=== PATIENT | female | born 1970 | race Caucasian/White ===

== ENCOUNTER 2020-10-02 09:25 | Observation (INO) ==
[2020-10-02] MEDS ORDERED: ONDANSETRON INJ 2 MG/ML 2 ML VIAL IV STA (11:08)
[2020-10-02] MEDS ORDERED: HYDROmorphone INJ 0.5 MG/0.5 ML SYR IV STA ×2 (11:08→13:03)
--- NOTE | 2020-10-02 11:16 | XRay Report ---
XR ribs RT min 2V w CXR1V CLINICAL HISTORY: right sided rib pain r/o fracture COMPARISON: None FINDINGS: There is no pneumothorax or pleural effusion. Lung volumes are mildly diminished. Minimal left basilar opacity favors atelectasis. Cardiac size is normal. No evidence for pulmonary edema. Not e is made of nondisplaced fractures of the anterolateral aspects of the right fourth, fifth and sixth ribs as well as the anterior aspects of the right fourth and fifth ribs. There is callus formation. No acute fractures are identified. IMPRESSION: 1. No pneumothorax. 2. Fractures of the right fourth, fifth and sixth ribs. Fourth and fifth ribs fractured in 2 location s. Apparent callus formation suggestive of subacute to chronic fractures. No acute fractures identifi ed. ACT 112: Negative or not required by law. Electronically signed by: Edmond Martinez M.D. 10/02/2020 11:14 AM
[2020-10-02 11:40] LABS: Basophils # (auto) 0.01 K/uL (0-0.2); Basophils % (auto) 0.1 %; Eosinophils # (auto) 0.01 K/uL (0-0.5); Eosinophils % (auto) 0.1 %; Hematocrit (blood only) 46.1 % (37-47); Hemoglobin 16.4 g/dL (12.0-16.0); Immature Granulocytes # (auto) 0.03 K/uL (0.00-0.02); Immature Granulocytes % (auto) 0.3 %; Lymphocytes # (auto) 1.74 K/uL (1.2-3.4); Lymphocytes % (auto) 14.6 %; Mean Corpuscular Hemoglobin 35.9 pg (25-34); Mean Corpuscular Hgb Conc 35.6 g/dL (32-36); Mean Corpuscular Volume 100.9 fL (80-100); Mean Platelet Volume 11.8 fL (7.4-10.4); Monocytes # (auto) 0.93 K/uL (0.11-0.59); Monocytes % (auto) 7.8 %; Neutrophils # (auto) 9.23 K/uL (1.4-6.5); Neutrophils % (auto) 77.1 %; Platelet Count 215 K/uL (130-400); RDW Coefficient of Variation 13.5 % (11.5-14.5); RDW Standard Deviation 50.1 fL (36.4-46.3); Red Blood Count 4.57 M/uL (4.2-5.4); White Blood Count 11.95 K/uL (4.8-10.8)
--- NOTE | 2020-10-02 11:47 | Emergency Department Note ---
History of Present Illness General Chief complaint: Rib Injury/Pain Stated complaint: SEVERE RIB PAIN Time Seen by Provider: 10/02/20 11:02 Source: patient History of Present Illness Provider complaint: Right-sided rib pain Onset (ago): hour(s) Location: chest and right Radiation: back Severity: severe Pain Consistency: + constant Maximum Pain Intensity: 8 Quality: + sharp Exacerbated By: + movement Associated symptoms: + shortness of breath; no cough, no fever/chills, no headaches, no nausea/vomiting and no weakness This is a 49-year-old female who presents with right-sided rib pain starting at 8 PM last night. The patient states that she was drinking alcohol and she did a cartwheel falling onto her right side. She states the pain is sharp. She rates it an 8 out of 10 in severity. It is worse with movement or deep breaths. It is associated with some shortness of breath. She also thinks that she hit her head and she complains of right-sided neck pain. She denies any headache. She denies LOC. She denies any abdominal pain. She does have chronic hip pain but her hips are not bothering her at this time. She denies any recent illness, fever, cough or cold symptoms, vomiting or diarrhea. Home Medications Medication Instructions Recorded Confirmed Type buspirone 5 - 15 mg PO BID 10/02/20 10/02/20 History lisinopril 40 mg PO DAILY 10/02/20 10/02/20 History metoprolol succinate 100 mg PO QAM 10/02/20 10/02/20 History trazodone 50 mg PO DAILY 10/02/20 10/02/20 History venlafaxine 300 mg PO DAILY 10/02/20 10/02/20 History Allergies Allergy/AdvReac Type Severity Reaction Status Date / Time celecoxib [From Celebrex] Allergy Severe BLURRED Unverified 10/02/20 14:32 VISION, DIZZINESS Sulfa (Sulfonamide Allergy Severe RASH, SKIN Unverified 10/02/20 14:32 Antibiotics) ITCHING Past Med/Surg History Medical History Depression Hypertension Lyme disease Family History (Updated 10/02/20 @ 15:43 by Jeramy Nicole MD) Father Hypertension Social History Smoking Status: Current every day smoker Tobacco Type: Cigarettes Feels Safe at Home: Yes Review of Systems See HPI for pertinent positives & negatives. and A total of 10 systems reviewed and were otherwise negative Physical Exam Vital Signs Vital Signs - 24 hr 10/02/20 09:41 10/02/20 11:53 10/02/20 11:54 Temperature 36.6 C Temperature Source Temporal Artery Scan Pulse Rate 66 87 Pulse Rate [Finger] 70 Pulse Rate from SpO2 Sensor 87 Pulse Rhythm [Finger] Regular Respiratory Rate 18 22 18 Blood Pressure 124/85 131/89 Blood Pressure [Left Arm] 131/89 Blood Pressure Mean 98 103 Blood Pressure Mean [Left Arm] 103 Pulse Oximetry 95 97 96 Oxygen Delivery Method Room Air Sepsis Recent Fever Within 48 Hours No Sepsis New/Unexplained Change in Mental Status No Sepsis Action Taken by Nursing No Action Required 10/02/20 11:58 10/02/20 12:00 10/02/20 12:10 Temperature Temperature Source Pulse Rate 85 83 75 Pulse Rate [Finger] Pulse Rate from SpO2 Sensor 85 83 76 Pulse Rhythm [Finger] Respiratory Rate 17 17 18 Blood Pressure Blood Pressure [Left Arm] Blood Pressure Mean Blood Pressure Mean [Left Arm] Pulse Oximetry 94 93 93 Oxygen Delivery Method Sepsis Recent Fever Within 48 Hours Sepsis New/Unexplained Change in Mental Status Sepsis Action Taken by Nursing 10/02/20 12:20 10/02/20 12:30 10/02/20 12:40 Temperature Temperature Source Pulse Rate 92 H 82 76 Pulse Rate [Finger] Pulse Rate from SpO2 Sensor 93 H 81 74 Pulse Rhythm [Finger] Respiratory Rate 13 25 H 21 Blood Pressure Blood Pressure [Left Arm] Blood Pressure Mean Blood Pressure Mean [Left Arm] Pulse Oximetry 99 96 96 Oxygen Delivery Method Sepsis Recent Fever Within 48 Hours Sepsis New/Unexplained Change in Mental Status Sepsis Action Taken by Nursing 10/02/20 12:58 10/02/20 13:00 10/02/20 13:10 Temperature Temperature Source Pulse Rate 78 83 80 Pulse Rate [Finger] Pulse Rate from SpO2 Sensor 78 77 Pulse Rhythm [Finger] Respiratory Rate 21 22 23 Blood Pressure Blood Pressure [Left Arm] Blood Pressure Mean Blood Pressure Mean [Left Arm] Pulse Oximetry 93 97 Oxygen Delivery Method Sepsis Recent Fever Within 48 Hours Sepsis New/Unexplained Change in Mental Status Sepsis Action Taken by Nursing 10/02/20 13:20 10/02/20 13:30 10/02/20 13:40 Temperature Temperature Source Pulse Rate 86 96 H 90 Pulse Rate [Finger] Pulse Rate from SpO2 Sensor 83 94 H 94 H Pulse Rhythm [Finger] Respiratory Rate 22 28 H 22 Blood Pressure Blood Pressure [Left Arm] Blood Pressure Mean Blood Pressure Mean [Left Arm] Pulse Oximetry 92 97 99 Oxygen Delivery Method Sepsis Recent Fever Within 48 Hours Sepsis New/Unexplained Change in Mental Status Sepsis Action Taken by Nursing 10/02/20 13:50 10/02/20 14:00 10/02/20 14:10 Temperature Temperature Source Pulse Rate 94 H 79 74 Pulse Rate [Finger] Pulse Rate from SpO2 Sensor 91 H 79 74 Pulse Rhythm [Finger] Respiratory Rate 21 16 13 Blood Pressure Blood Pressure [Left Arm] Blood Pressure Mean Blood Pressure Mean [Left Arm] Pulse Oximetry 94 95 94 Oxygen Delivery Method Sepsis Recent Fever Within 48 Hours Sepsis New/Unexplained Change in Mental Status Sepsis Action Taken by Nursing 10/02/20 14:20 10/02/20 14:24 10/02/20 14:25 Temperature Temperature Source Pulse Rate 87 83 87 Pulse Rate [Finger] Pulse Rate from SpO2 Sensor 83 84 86 Pulse Rhythm [Finger] Respiratory Rate 21 16 28 H Blood Pressure 143/87 H Blood Pressure [Left Arm] Blood Pressure Mean 105 Blood Pressure Mean [Left Arm] Pulse Oximetry 96 97 96 Oxygen Delivery Method Sepsis Recent Fever Within 48 Hours Sepsis New/Unexplained Change in Mental Status Sepsis Action Taken by Nursing 10/02/20 14:30 10/02/20 14:40 10/02/20 14:45 Temperature Temperature Source Pulse Rate 73 68 71 Pulse Rate [Finger] Pulse Rate from SpO2 Sensor 72 72 76 Pulse Rhythm [Finger] Respiratory Rate 22 24 19 Blood Pressure 135/84 116/69 Blood Pressure [Left Arm] Blood Pressure Mean 101 84 Blood Pressure Mean [Left Arm] Pulse Oximetry 94 92 98 Oxygen Delivery Method Sepsis Recent Fever Within 48 Hours Sepsis New/Unexplained Change in Mental Status Sepsis Action Taken by Nursing 10/02/20 14:50 10/02/20 15:00 10/02/20 15:10 Temperature Temperature Source Pulse Rate 79 88 83 Pulse Rate [Finger] Pulse Rate from SpO2 Sensor 76 92 H 83 Pulse Rhythm [Finger] Respiratory Rate 17 16 21 Blood Pressure Blood Pressure [Left Arm] Blood Pressure Mean Blood Pressure Mean [Left Arm] Pulse Oximetry 96 98 94 Oxygen Delivery Method Sepsis Recent Fever Within 48 Hours Sepsis New/Unexplained Change in Mental Status Sepsis Action Taken by Nursing 10/02/20 15:15 10/02/20 15:20 10/02/20 15:30 Temperature Temperature Source Pulse Rate 79 96 H 91 H Pulse Rate [Finger] Pulse Rate from SpO2 Sensor 80 97 H 86 Pulse Rhythm [Finger] Respiratory Rate 14 22 22 Blood Pressure 135/106 H Blood Pressure [Left Arm] Blood Pressure Mean 115 Blood Pressure Mean [Left Arm] Pulse Oximetry 97 97 94 Oxygen Delivery Method Sepsis Recent Fever Within 48 Hours Sepsis New/Unexplained Change in Mental Status Sepsis Action Taken by Nursing 10/02/20 15:40 10/02/20 15:50 10/02/20 16:00 Temperature Temperature Source Pulse Rate 70 74 67 Pulse Rate [Finger] Pulse Rate from SpO2 Sensor 72 76 68 Pulse Rhythm [Finger] Respiratory Rate 12 14 24 Blood Pressure Blood Pressure [Left Arm] Blood Pressure Mean Blood Pressure Mean [Left Arm] Pulse Oximetry 94 95 95 Oxygen Delivery Method Sepsis Recent Fever Within 48 Hours Sepsis New/Unexplained Change in Mental Status Sepsis Action Taken by Nursing Constitutional: Vital signs reviewed. Eyes: Pupils are equal round reactive to light. Conjunctiva are noninjected. ENT: Pharynx is clear without erythema or exudate. Mucous membranes are moist. No midline tenderness to the cervical spine. Respiratory: Clear to auscultation bilaterally. Breath sounds are equal bilaterally. Cardiovascular: Regular rate and rhythm. No rubs or gallops. GI: Soft, nondistended and nontender. Bowel sounds are present. Musculoskeletal: No peripheral edema. No hip or lower extremity tenderness. She has tenderness diffusely over the right chest with light palpation. Integumentary: No cyanosis. or jaundice. Neurologic: The patient is awake and alert. Cranial nerves II-XII are intact. Motor is 5 out of 5 all extremities. Sensation is intact to light touch all extremities. Normal speech. No pronator drift. Psychiatric: Anxious. Course Administered Medications Discontinued Medications Hydromorphone HCl (Hydromorphone Inj 0.5 Mg/0.5 Ml Syr) 0.5 mg IV NOW STA Stop: 10/02/20 11:09 Last Admin: 10/02/20 11:53 Dose: 0.5 mg Documented by: [id number] Hydromorphone HCl (Hydromorphone Inj 0.5 Mg/0.5 Ml Syr) 0.5 mg IV NOW STA Stop: 10/02/20 13:04 Last Admin: 10/02/20 13:09 Dose: 0.5 mg Documented by: [id number] Ioversol (Optiray 300 100ml) 90 ml IV ONCE ONE Stop: 10/02/20 12:50 Last Admin: 10/02/20 15:44 Dose: Not Given Documented by: [id number] Ondansetron HCl (Ondansetron Inj 2 Mg/Ml 2 Ml Vial) 4 mg IV NOW STA Stop: 10/02/20 11:09 Last Admin: 10/02/20 11:53 Dose: 4 mg Documented by: [id number] Medical Decision Making Differential Diagnosis Rib fracture, contusion, pneumothorax, hemothorax, intracranial hemorrhage, cervical fracture, visceral injury Medical Records Attestation: I reviewed the patient's medical records. I did perform a limited focused review of portions of the patient's old chart on the electronic medical record. The patient has had no recent pertinent visits to this hospital. Home Medications Current Medication List: was personally reviewed by me Laboratory Data Attestation: I reviewed the patient's lab results. Result diagrams: 10/02/20 11:27 10/02/20 11:27 Lab Results 10/02/20 10/02/20 10/02/20 Range/Units 11:27 11:27 11:27 WBC 11.95 H (4.8-10.8) K/uL RBC 4.57 (4.2-5.4) M/uL Hgb 16.4 H (12.0-16.0) g/dL Hct 46.1 (37-47) % MCV 100.9 H (80-100) fL MCH 35.9 H (25-34) pg MCHC 35.6 (32-36) g/dL RDW Std Deviation 50.1 H (36.4-46.3) fL RDW Coeff of Guero 13.5 (11.5-14.5) % Plt Count 215 (130-400) K/uL MPV 11.8 H (7.4-10.4) fL Immature Gran % (Auto) 0.3 % Neut % (Auto) 77.1 % Lymph % (Auto) 14.6 % [place] % (Auto) 7.8 % Eos % (Auto) 0.1 % Baso % (Auto) 0.1 % Neut # (Auto) 9.23 H (1.4-6.5) K/uL Lymph # (Auto) 1.74 (1.2-3.4) K/uL [place] # (Auto) 0.93 H (0.11-0.59) K/uL Eos # (Auto) 0.01 (0-0.5) K/uL Baso # (Auto) 0.01 (0-0.2) K/uL Immature Gran # (Auto) 0.03 H (0.00-0.02) K/uL PT 10.3 (9.0-12.0) Seconds INR 1.0 (0.9-1.1) APTT 33.2 H (21.0-31.0) Seconds PTT Ratio 1.3 Sodium 136 (136-145) mmol/L Potassium 3.8 (3.5-5.1) mmol/L Chloride 105 (98-107) mmol/L Carbon Dioxide 22 (21-32) mmol/L Anion Gap 9.0 (3-11) BUN 8 (7-18) mg/dl Creatinine 0.90 (0.6-1.2) mg/dl Est Cr Clr Drug Dosing 69.4 ml/min Est GFR ( Amer) 88.3 Est GFR (Non-Af Amer) 76.1 BUN/Creatinine Ratio 8.9 L (10-20) Glucose 106 H (70-99) mg/dl Calcium 8.9 (8.5-10.1) mg/dl Total Bilirubin 1.2 H (0.2-1) mg/dl AST 246 H (15-37) U/L ALT 144 H (12-78) U/L Alkaline Phosphatase 118 H (45-117) U/L Total Protein 7.8 (6.4-8.2) gm/dl Albumin 3.9 (3.4-5.0) gm/dl Globulin 3.9 (2.5-4.0) gm/dl Albumin/Globulin Ratio 1.0 (0.9-2) Lipase (73-393) U/L Urine Color Urine Appearance (Clear) Urine pH (4.5-7.5) Ur Specific [place] (1.000-1.030) Urine Protein (Negative) Urine Glucose (UA) (Negative) Urine Ketones (Negative) Urine Blood (Negative) Urine Nitrite (Negative) Urine Bilirubin (Negative) Urine Urobilinogen (Negative) Ur Leukocyte Esterase (Negative) Urine WBC (Auto) (0-5) /hpf Urine RBC (Auto) (0-4) /hpf U Hyaline Cast (Auto) (0-5) /lpf U Epithel Cells (Auto) (0-5) /lpf Urine Bacteria (Auto) (Negative) Ur Renal Epithelial Cell COVID-19 Eval Order SARS-CoV-2 (PCR) (Negative) Influenza Type A (PCR) (Neg) Influenza Type B (PCR) (Neg) RSV (RT-PCR) (Neg) 10/02/20 10/02/20 10/02/20 Range/Units 11:27 12:25 12:25 WBC (4.8-10.8) K/uL RBC (4.2-5.4) M/uL Hgb (12.0-16.0) g/dL Hct (37-47) % MCV (80-100) fL MCH (25-34) pg MCHC (32-36) g/dL RDW Std Deviation (36.4-46.3) fL RDW Coeff of Guero (11.5-14.5) % Plt Count (130-400) K/uL MPV (7.4-10.4) fL Immature Gran % (Auto) % Neut % (Auto) % Lymph % (Auto) % [place] % (Auto) % Eos % (Auto) % Baso % (Auto) % Neut # (Auto) (1.4-6.5) K/uL Lymph # (Auto) (1.2-3.4) K/uL [place] # (Auto) (0.11-0.59) K/uL Eos # (Auto) (0-0.5) K/uL Baso # (Auto) (0-0.2) K/uL Immature Gran # (Auto) (0.00-0.02) K/uL PT (9.0-12.0) Seconds INR (0.9-1.1) APTT (21.0-31.0) Seconds PTT Ratio Sodium (136-145) mmol/L Potassium (3.5-5.1) mmol/L Chloride (98-107) mmol/L Carbon Dioxide (21-32) mmol/L Anion Gap (3-11) BUN (7-18) mg/dl Creatinine (0.6-1.2) mg/dl Est Cr Clr Drug Dosing ml/min Est GFR ( Amer) Est GFR (Non-Af Amer) BUN/Creatinine Ratio (10-20) Glucose (70-99) mg/dl Calcium (8.5-10.1) mg/dl Total Bilirubin (0.2-1) mg/dl AST (15-37) U/L ALT (12-78) U/L Alkaline Phosphatase (45-117) U/L Total Protein (6.4-8.2) gm/dl Albumin (3.4-5.0) gm/dl Globulin (2.5-4.0) gm/dl Albumin/Globulin Ratio (0.9-2) Lipase 125 (73-393) U/L Urine Color Urine Appearance (Clear) Urine pH (4.5-7.5) Ur Specific [place] (1.000-1.030) Urine Protein (Negative) Urine Glucose (UA) (Negative) Urine Ketones (Negative) Urine Blood (Negative) Urine Nitrite (Negative) Urine Bilirubin (Negative) Urine Urobilinogen (Negative) Ur Leukocyte Esterase (Negative) Urine WBC (Auto) (0-5) /hpf Urine RBC (Auto) (0-4) /hpf U Hyaline Cast (Auto) (0-5) /lpf U Epithel Cells (Auto) (0-5) /lpf Urine Bacteria (Auto) (Negative) Ur Renal Epithelial Cell COVID-19 Eval Order CovFluRsv at [facility] SARS-CoV-2 (PCR) NEGATIVE (Negative) Influenza Type A (PCR) Negative (Neg) Influenza Type B (PCR) Negative (Neg) RSV (RT-PCR) Negative (Neg) 10/02/20 Range/Units 14:25 WBC (4.8-10.8) K/uL RBC (4.2-5.4) M/uL Hgb (12.0-16.0) g/dL Hct (37-47) % MCV (80-100) fL MCH (25-34) pg MCHC (32-36) g/dL RDW Std Deviation (36.4-46.3) fL RDW Coeff of Guero (11.5-14.5) % Plt Count (130-400) K/uL MPV (7.4-10.4) fL Immature Gran % (Auto) % Neut % (Auto) % Lymph % (Auto) % [place] % (Auto) % Eos % (Auto) % Baso % (Auto) % Neut # (Auto) (1.4-6.5) K/uL Lymph # (Auto) (1.2-3.4) K/uL [place] # (Auto) (0.11-0.59) K/uL Eos # (Auto) (0-0.5) K/uL Baso # (Auto) (0-0.2) K/uL Immature Gran # (Auto) (0.00-0.02) K/uL PT (9.0-12.0) Seconds INR (0.9-1.1) APTT (21.0-31.0) Seconds PTT Ratio Sodium (136-145) mmol/L Potassium (3.5-5.1) mmol/L Chloride (98-107) mmol/L Carbon Dioxide (21-32) mmol/L Anion Gap (3-11) BUN (7-18) mg/dl Creatinine (0.6-1.2) mg/dl Est Cr Clr Drug Dosing ml/min Est GFR ( Amer) Est GFR (Non-Af Amer) BUN/Creatinine Ratio (10-20) Glucose (70-99) mg/dl Calcium (8.5-10.1) mg/dl Total Bilirubin (0.2-1) mg/dl AST (15-37) U/L ALT (12-78) U/L Alkaline Phosphatase (45-117) U/L Total Protein (6.4-8.2) gm/dl Albumin (3.4-5.0) gm/dl Globulin (2.5-4.0) gm/dl Albumin/Globulin Ratio (0.9-2) Lipase (73-393) U/L Urine Color Yellow Urine Appearance Clear (Clear) Urine pH 6.0 (4.5-7.5) Ur Specific [place] > 1.045 H (1.000-1.030) Urine Protein Trace H (Negative) Urine Glucose (UA) Negative (Negative) Urine Ketones Negative (Negative) Urine Blood Negative (Negative) Urine Nitrite Negative (Negative) Urine Bilirubin Negative (Negative) Urine Urobilinogen Negative (Negative) Ur Leukocyte Esterase Trace H (Negative) Urine WBC (Auto) 5-10 H (0-5) /hpf Urine RBC (Auto) 0-4 (0-4) /hpf U Hyaline Cast (Auto) 1-5 (0-5) /lpf U Epithel Cells (Auto) >30 H (0-5) /lpf Urine Bacteria (Auto) Negative (Negative) Ur Renal Epithelial Cell Not Reportable COVID-19 Eval Order SARS-CoV-2 (PCR) (Negative) Influenza Type A (PCR) (Neg) Influenza Type B (PCR) (Neg) RSV (RT-PCR) (Neg) Imaging Data Radiologist's Impression: Ribs w/Chest X-Ray 10/02/20 09:46 XR ribs RT min 2V w [id number] CLINICAL HISTORY: right sided rib pain r/o fracture COMPARISON: None FINDINGS: There is no pneumothorax or pleural effusion. Lung volumes are mildly diminished. Minimal left basilar opacity favors atelectasis. Cardiac size is normal. No evidence for pulmonary edema. Note is made of nondisplaced fractures of the anterolateral aspects of the right fourth, fifth and sixth ribs as well as the anterior aspects of the right fourth and fifth ribs. There is callus formation. No acute fractures are identified. IMPRESSION: 1. No pneumothorax. 2. Fractures of the right fourth, fifth and sixth ribs. Fourth and fifth ribs fractured in 2 locations. Apparent callus formation suggestive of subacute to chronic fractures. No acute fractures identified. ACT 112: Negative or not required by law. Electronically signed by: Edmond Martinez M.D. 10/02/2020 11:[address] 10/02/20 11:08 CT OF THE CERVICAL SPINE CLINICAL HISTORY: Neck pain status post trauma COMPARISON STUDY: No previous studies for comparison. CT DOSE: 987.43 mGy.cm TECHNIQUE: CT scan of the cervical spine was performed from the skull base to the thoracic inlet. Images are reviewed in the axial, sagittal, and coronal planes. IV contrast was not administered for this examination. A dose lowering technique was utilized adhering to the principles of ALARA. FINDINGS: The visualized portions of the lung apices reveal no evidence of pneumothorax. There is a 2 mm right apical pulmonary nodule. No further follow-up is indicated an average risk patient. The prevertebral soft tissues are normal. No fractures or subluxations are visualized. There is no CT evidence of spinal or foraminal stenosis. There are small right paratracheal gas collections, likely secondary to tracheal diverticula. IMPRESSION: No evidence of acute fracture or traumatic subluxation. ACT 112: Negative or not required by law. Electronically signed by: Alvin Villela M.D. 10/02/2020 11:[address] 10/02/20 11:08 CT head/brain wo con CLINICAL HISTORY: 49 years-old Female with fall eval for bleed. Acute head injury status post fall TECHNIQUE: Multiple axial CT images of the head were obtained without contrast. A dose lowering technique was utilized adhering to the principles of ALARA. COMPARISON: CT cervical spine of same day FINDINGS: No acute intracranial hemorrhage, midline shift, intracranial mass, hydrocephalus, territorial ischemia or abnormal extra-axial collection. The calvarium is intact. The paranasal sinuses, mastoid air cells, and middle ear cavities are clear. IMPRESSION: No acute intracranial abnormality or calvarial fracture. ACT 112: Negative or not required by law. The above report was generated using voice recognition software. It may contain grammatical, syntax or spelling errors. Electronically signed by: Richard Olson M.D. 10/02/2020 11:49 AM Abdomen/Pelvis CT 10/02/20 12:[address] WITH CONTRAST; CT ABDOMEN AND PELVIS WITH IV CONTRAST ONLY CT DOSE: 1324.81 mGy.cm HISTORY: Acute chest and abdominal trauma trauma eval for pulmonary contusion/ptx TECHNIQUE: Multiaxial CT images of the chest, abdomen and pelvis were performed following the IV administration of 90 cc of Optiray. A dose lowering technique was utilized adhering to the principles of ALARA. COMPARISON: Chest and rib radiographs of same day FINDINGS: CT CHEST: Unremarkable thyroid. No adenopathy or mediastinal hematoma. The heart is upper limits of normal in size. No pericardial effusion or acute thoracic aortic injury. Unremarkable pulmonary artery. Mild dependent subsegmental bibasilar atelectasis. No pneumothorax, pleural effusion, overt pulmonary edema or airspace consolidation. Minimal subpleural bleb formation of the lung apices. 2 mm solid nodule of the right lung apex favors benign etiology. Central airways are patent. Small upper thoracic tracheocele. Unremarkable soft tissues. No acute rib or vertebral body fracture identified. Healed chronic appearing fractures of the anterolateral right fourth through sixth ribs. Additionally, there are healing subacute appearing fractures without significant displacement involving the anterior right second, fourth and fifth ribs. CT ABDOMEN/PELVIS: No pneumatosis or pneumoperitoneum. The spleen, pancreas, gallbladder and adrenal glands are unremarkable. Suggested hepatic steatosis. No acute liver injury. Patency of the hepatic and portal veins. Symmetric enhancement of the kidneys. No acute renal injury. There are several nonobstructing calculi of the left kidney measuring up to 11 mm. No definite right nephrolithiasis or ureteral calculi. Unremarkable urinary bladder. Hysterectomy. No adnexal mass lesion. Calcified plaque the abdominal aorta without aneurysm. No adenopathy. No bowel obstruction or bowel wall thickening. Colonic diverticulosis. Air-fille d noninflamed appendix measures the upper limits of normal in diameter. No abdominal free fluid. Tiny fat filled umbilical ventral abdominal wall hernia, diastases 1.5 cm. No acute fracture identified. IMPRESSION: 1. Subacute and chronic right-sided rib fractures as above. No acute rib fracture or pneumothorax. 2. No acute intra-abdominal or intrapelvic abnormality. 3. Nonobstructing left nephrolithiasis. 4. Additional findings as above. ACT 112: Negative or not required by law. Electronically signed by: Richard Olson M.D. 10/02/2020 1:[address] 10/02/20 12:[address] WITH CONTRAST; CT ABDOMEN AND PELVIS WITH IV CONTRAST ONLY CT DOSE: 1324.81 mGy.cm HISTORY: Acute chest and abdominal trauma trauma eval for pulmonary contusion/ptx TECHNIQUE: Multiaxial CT images of the chest, abdomen and pelvis were performed following the IV administration of 90 cc of Optiray. A dose lowering technique was utilized adhering to the principles of ALARA. COMPARISON: Chest and rib radiographs of same day FINDINGS: CT CHEST: Unremarkable thyroid. No adenopathy or mediastinal hematoma. The heart is upper limits of normal in size. No pericardial effusion or acute thoracic aortic injury. Unremarkable pulmonary artery. Mild dependent subsegmental bibasilar atelectasis. No pneumothorax, pleural effusion, overt pulmonary edema or airspace consolidation. Minimal subpleural bleb formation of the lung apices. 2 mm solid nodule of the right lung apex favors benign etiology. Central airways are patent. Small upper thoracic tracheocele. Unremarkable soft tissues. No acute rib or vertebral body fracture identified. Healed chronic appearing fractures of the anterolateral right fourth through sixth ribs. Additionally, there are healing subacute appearing fractures without significant displacement involving the anterior right second, fourth and fifth ribs. CT ABDOMEN/PELVIS: No pneumatosis or pneumoperitoneum. The spleen, pancreas, gallbladder and adrenal glands are unremarkable. Suggested hepatic steatosis. No acute liver injury. Patency of the hepatic and portal veins. Symmetric enhancement of the kidneys. No acute renal injury. There are several nonobstructing calculi of the left kidney measuring up to 11 mm. No definite right nephrolithiasis or ureteral calculi. Unremarkable urinary bladder. Hysterectomy. No adnexal mass lesion. Calcified plaque the abdominal aorta without aneurysm. No adenopathy. No bowel obstruction or bowel wall thickening. Colonic diverticulosis. Air- filled noninflamed appendix measures the upper limits of normal in diameter. No abdominal free fluid. Tiny fat filled umbilical ventral abdominal wall hernia, diastases 1.5 cm. No acute fracture identified. IMPRESSION: 1. Subacute and chronic right-sided rib fractures as above. No acute rib fracture or pneumothorax. 2. No acute intra-abdominal or intrapelvic abnormality. 3. Nonobstructing left nephrolithiasis. 4. Additional findings as above. ACT 112: Negative or not required by law. Electronically signed by: Richard Olson M.D. 10/02/2020 1:11 PM Head Trauma GCS Score: 15 MDM Narrative I did evaluate the patient as noted above. She is presenting with severe rib pain after falling at 8 PM last night while intoxicated. She denies any abdominal pain and has no tenderness there. She does admit to hitting her head. She was placed in a rigid cervical collar. IV access was established. I did treat her with IV Dilaudid and Zofran. I did place an order for continuous cardiac monitoring. The monitor showed normal sinus rhythm at a rate of 67 bpm. I did order and personally reviewed the images of the patient's chest and rib x-rays as described above. She does have 3 rib fractures which contain 2 ribs that are broken in 2 places. I did order a urine analysis. She has no evidence of blood or infection. I did order and review the patient's blood work as noted in the electronic medical record. Her white count is slightly elevated 11.9. Electrolytes are unremarkable. AST and ALT are elevated. After discussion with the patient, I did order a CT of the head, cervical spine, chest, abdomen and pelvis. I did review the images myself as well as the radiology report as described above. There is no evidence of pneumothorax, intracranial abnormality, cervical fracture or visceral injury. I did discuss the case with the trauma surgeon on-call at [facility],, Dr. Roberts. She stated that the patient with likely not get rib fixation as that is very rare for treatment of these types of fractures but she would be happy to take her in transfer. I did talk to the patient who stated that she was fine staying in this hospital if they were going to do anything necessarily at [facility]. The patient was given additional Dilaudid for pain control. She states her LFTs have been elevated in the past due to alcohol abuse. She does states she drinks on a daily basis. She does not feel she is withdrawing at this time. I did discuss the case with the hospitalist and case resolution specialist. Her Covid screening test was negative. Impression & Plan Multiple fractures of ribs, Acute head injury, Acute neck pain, Abnormal LFTs, Alcohol dependence Discharge Plan Visit Data Chief Complaint: Rib Injury/Pain Stated Complaint: SEVERE RIB PAIN ED Provider: David Dowell Patient Disposition: Being Evaluated by Hospitalist Prescriptions Prescriptions: No Action buspirone 5 mg tablet 5 - 15 mg PO BID RF: 0 trazodone 50 mg tablet 50 mg PO DAILY RF: 0 metoprolol succinate 50 mg tablet extended release 24 hr 100 mg PO QAM RF: 0 venlafaxine 100 mg tablet 300 mg PO DAILY RF: 0 lisinopril 40 mg tablet 40 mg PO DAILY RF: 0
--- NOTE | 2020-10-02 11:50 | CT Scan Report ---
CT head/brain wo con CLINICAL HISTORY: 49 years-old Female with fall eval for bleed. Acute head injury status post fall TECHNIQUE: Multiple axial CT images of the head were obtained without contrast. A dose lowering tech nique was utilized adhering to the principles of ALARA. COMPARISON: CT cervical spine of same day FINDINGS: No acute intracranial hemorrhage, midline shift, intracranial mass, hydrocephalus, territorial ischem ia or abnormal extra-axial collection. The calvarium is intact. The paranasal sinuses, mastoid air cells, and middle ear cavities are clear . IMPRESSION: No acute intracranial abnormality or calvarial fracture. ACT 112: Negative or not required by law. The above report was generated using voice recognition software. It may contain grammatical, syntax o r spelling errors. Electronically signed by: Richard Olson M.D. 10/02/2020 11:49 AM
[2020-10-02 11:51] LABS: Partial Thromboplastin Ratio 1.3; Partial Thromboplastin Time 33.2 Seconds (21.0-31.0); Prothrombin Time 10.3 Seconds (9.0-12.0)
--- NOTE | 2020-10-02 11:51 | CT Scan Report ---
CT OF THE CERVICAL SPINE CLINICAL HISTORY: Neck pain status post trauma COMPARISON STUDY: No previous studies for comparison. CT DOSE: 987.43 mGy.cm TECHNIQUE: CT scan of the cervical spine was performed from the skull base to the thoracic inlet. [place] ges are reviewed in the axial, sagittal, and coronal planes. IV contrast was not administered for thi s examination. A dose lowering technique was utilized adhering to the principles of ALARA. FINDINGS: The visualized portions of the lung apices reveal no evidence of pneumothorax. There is a 2 mm right apical pulmonary nodule. No further follow-up is indicated an average risk patient. The prevertebral soft tissues are normal. No fractures or subluxations are visualized. There is no CT evidence of spinal or foraminal stenosis. There are small right paratracheal gas collections, likely secondary to tracheal diverticula. IMPRESSION: No evidence of acute fracture or traumatic subluxation. ACT 112: Negative or not required by law. Electronically signed by: Alvin Villela M.D. 10/02/2020 11:50 AM
[2020-10-02 11:58] LABS: Albumin Level 3.9 gm/dl (3.4-5.0); BUN Creatinine Ratio 8.9 (10-20); Calcium 8.9 mg/dl (8.5-10.1); Creatinine Clr Calc Pharmacy 69.4 ml/min; Est GFR (African American) 88.3; Est GFR (Non-African American) 76.1; Potassium 3.8 mmol/L (3.5-5.1)
[2020-10-02 12:01] LABS: Bilirubin,Total 1.2 mg/dl (0.2-1); Globulin 3.9 gm/dl (2.5-4.0); Total Protein 7.8 gm/dl (6.4-8.2)
[2020-10-02] MEDS ORDERED: OPTIRAY 300 100mL IV ONE (12:49)
--- NOTE | 2020-10-02 13:12 | CT Scan Report ---
CHEST CT WITH CONTRAST; CT ABDOMEN AND PELVIS WITH IV CONTRAST ONLY CT DOSE: 1324.81 mGy.cm HISTORY: Acute chest and abdominal trauma trauma eval for pulmonary contusion/ptx TECHNIQUE: Multiaxial CT images of the chest, abdomen and pelvis were performed following the IV admi nistration of 90 cc of Optiray. A dose lowering technique was utilized adhering to the principles o f ALARA. COMPARISON: Chest and rib radiographs of same day FINDINGS: CT CHEST: Unremarkable thyroid. No adenopathy or mediastinal hematoma. The heart is upper limits of normal in s ize. No pericardial effusion or acute thoracic aortic injury. Unremarkable pulmonary artery. Mild dep endent subsegmental bibasilar atelectasis. No pneumothorax, pleural effusion, overt pulmonary edema o r airspace consolidation. Minimal subpleural bleb formation of the lung apices. 2 mm solid nodule of the right lung apex favors benign etiology. Central airways are patent. Small upper thoracic tracheoc shauna. Unremarkable soft tissues. No acute rib or vertebral body fracture identified. Healed chronic ap pearing fractures of the anterolateral right fourth through sixth ribs. Additionally, there are heali ng subacute appearing fractures without significant displacement involving the anterior right second, fourth and fifth ribs. CT ABDOMEN/PELVIS: No pneumatosis or pneumoperitoneum. The spleen, pancreas, gallbladder and adrenal glands are unremark able. Suggested hepatic steatosis. No acute liver injury. Patency of the hepatic and portal veins. Sy mmetric enhancement of the kidneys. No acute renal injury. There are several nonobstructing calculi o f the left kidney measuring up to 11 mm. No definite right nephrolithiasis or ureteral calculi. Unrem arkable urinary bladder. Hysterectomy. No adnexal mass lesion. Calcified plaque the abdominal aorta w ithout aneurysm. No adenopathy. No bowel obstruction or bowel wall thickening. Colonic diverticulosis. Air-filled noninflamed appendi x measures the upper limits of normal in diameter. No abdominal free fluid. Tiny fat filled umbilical ventral abdominal wall hernia, diastases 1.5 cm. No acute fracture identified. IMPRESSION: 1. Subacute and chronic right-sided rib fractures as above. No acute rib fracture or pneumothorax. 2. No acute intra-abdominal or intrapelvic abnormality. 3. Nonobstructing left nephrolithiasis. 4. Additional findings as above. ACT 112: Negative or not required by law. Electronically signed by: Richard Olson M.D. 10/02/2020 1:11 PM
[2020-10-02 13:20] LABS: Influenza A virus by PCR Negative (Neg); Influenza B virus by PCR Negative (Neg); RSV by PCR Negative (Neg); SARS CoV2 RNA(COVID-19) InHosp NEGATIVE (Negative)
[2020-10-02 14:42] LABS: Appearance Urine Clear (Clear); Bacteria Urine Automated Negative (Negative); Bilirubin Urine Negative (Negative); Blood Urine Negative (Negative); Color Urine Yellow; Epithelial Cell Urine Auto >30 /lpf (0-5); Glucose Urine UA Negative (Negative); Ketones Urine Negative (Negative); Leukocyte Esterase Urine Trace (Negative); Nitrite Urine Negative (Negative); Protein Urine Trace (Negative); RBC Urine Automated 0-4 /hpf (0-4); Specific Gravity Urine > 1.045 (1.000-1.030); Urobilinogen Urine Negative (Negative)
--- NOTE | 2020-10-02 15:40 | History & Physical Report ---
Date of Service October 02, 2020 Assessment & Plan (1) Rib pain on right side: CT chest showed subacute to chronic right rib fractures from the 4th - 6th ribs and healing fractures involving the anterior right second, fourth and fifth ribs. - Will tier pain control with NSAIDs, topical, and opioid medications for severe pain. (2) Alcoholic hepatitis: Drinks about 12-20 shots of rum per day per patient. AST/ALT are 245/145 on admission. Tbili is 1.2. Alk phos 120. Maddrey DF is -6.6, so good prognosis. - RUQ u/s ordered. - Monitor (3) Alcohol abuse: Drinks about 12-20 shots of rum per day per patient. Reports some mild withdrawal symptoms (tremor, anxiety), but no seizures or DTs. I encourage full alcohol cessation. - Gabapentin withdrawal taper - ONDINA protocol - Ativan PRN for agitation or anxiety (4) Hypertension: BP in the ED was 145/90. - Continue home lisinopril & metoprolol (5) Depression: Reports history of PTSD, anxiety, depression. - Continue home buspirone, trazodone, and venlafaxine (6) DVT prophylaxis: SCDs - Low DVT risk per admission calculator History of Present Illness Primary Care Provider: NO PCP 49yo F w/ hx of HTN, alcohol abuse, anxiety who presents with right rib pain after a fall at home. Per her and her sister, she was drinking heavily yesterday and doing cartwheels. She fell onto her right side. No immediate pain, but she took her trazodone and went to bed. She woke up with significant pain in the right rib area. She presented to the ED due to this pain. Allergies Allergy/AdvReac Type Severity Reaction Status Date / Time celecoxib [From Celebrex] Allergy Severe BLURRED Unverified 10/02/20 14:32 VISION, DIZZINESS Sulfa (Sulfonamide Allergy Severe RASH, SKIN Unverified 10/02/20 14:32 Antibiotics) ITCHING Home Medications Medication Instructions Recorded Confirmed Type buspirone 5 - 15 mg PO BID 10/02/20 10/02/20 History lisinopril 40 mg PO DAILY 10/02/20 10/02/20 History metoprolol succinate 100 mg PO QAM 10/02/20 10/02/20 History trazodone 50 mg PO DAILY 10/02/20 10/02/20 History venlafaxine 300 mg PO DAILY 10/02/20 10/02/20 History Past Med/Surg History Medical History Depression Hypertension Lyme disease Family History (Updated 10/02/20 @ 15:43 by Jeramy Nicole MD) Father Hypertension Social History Smoking Status: Current every day smoker Tobacco Type: Cigarettes Feels Safe at Home: Yes Review of Systems Review of Systems: All systems reviewed & are unremarkable except as noted in HPI & below Physical Exam Constitutional: WD/WN, vitals as above Eyes: EOM intact bilaterally; no conjunctival abnormality ENMT: external ear and nose normal, oropharynx normal Neck: trachea midline, no thyromegaly normal visual inspection Respiratory: normal respiratory effort, lungs clear to auscultation no r espiratory distress Cardiovascular: RRR, no murmur, no edema Gastrointestinal (Abdomen): Inspection/Auscultation: abdomen normal to inspection; abdomen not distended Musculoskeletal: no cyanosis or clubbing, extremities motor strength 5/5 Right rib pain Skin: no rashes, warm and dry Neurologic: moves all extremities and awake Psychiatric: Orientation: alert, oriented to person and cooperative Results & Data Results & Data ([facility]) Vital Signs (Past 12 Hours) Vital Signs Temp Pulse Pulse Resp BP BP Pulse Ox 10/02/20 14:24 83 16 143/87 H 97 10/02/20 14:20 87 21 96 10/02/20 14:10 74 13 94 10/02/20 14:00 79 16 95 10/02/20 13:50 94 H 21 94 10/02/20 13:40 90 22 99 10/02/20 13:30 96 H 28 H 97 10/02/20 13:20 86 22 92 10/02/20 13:10 80 23 97 10/02/20 13:00 83 22 93 10/02/20 12:58 78 21 10/02/20 12:40 76 21 96 10/02/20 12:30 82 25 H 96 10/02/20 12:20 92 H 13 99 10/02/20 12:10 75 18 93 10/02/20 12:00 83 17 93 05/03/21 11:58 85 17 94 10/02/20 11:54 70 18 131/89 96 10/02/20 11:53 87 22 131/89 97 10/02/20 09:41 36.6 C 66 18 124/85 95 Code Status & VTE Plan VTE Prophylaxis Plan VTE Prophylaxis will be ordered: Yes PG Care Time/CCT Total # of Minutes Spent Total Time Spent with Patient: Total time spent is greater than 50% in coordination of care (as documented) at patient's floor/unit and/or counseling patient: Coding Level of Care Code 39992 OBS Care - Level 3 Diagnoses Rib pain on right side R07.81 Alcoholic hepatitis K70.10 Alcohol abuse F10.10 Hypertension I10 Depression F32.9 DVT prophylaxis Z29.9
[2020-10-02] MEDS ORDERED: KETOROLAC 30 MG/ML VIAL IV PRN (16:51)
[2020-10-02] MEDS ORDERED: HYDROmorphone INJ 0.5 MG/0.5 ML SYR IV PRN (16:51)
[2020-10-02] MEDS ORDERED: ONDANSETRON INJ 2 MG/ML 2 ML VIAL IV PRN (16:51)
[2020-10-02] MEDS ORDERED: GABAPENTIN 1200MG ALCOHOL WITHDRAWAL LOAD PO STA (16:51)
[2020-10-02] MEDS ORDERED: LORazepam 1 MG/2 ML VIAL IV PRN (16:51)
[2020-10-02] MEDS: LACTATED RINGER'S 1,000 ML IV SCH (17:33)
[2020-10-02] MEDS: LIDOCAINE 5% 1 PATCH TD SCH (17:54)
[2020-10-02] MEDS: THIAMINE HCL 100 MG TAB PO SCH (17:55)
[2020-10-02] MEDS: FOLIC ACID 1 MG TAB PO SCH (17:56)
[2020-10-02] MEDS ORDERED: GABAPENTIN 600 MG TAB PO ONE (18:00)
--- NOTE | 2020-10-02 18:33 | Ultrasound Report ---
ULTRASOUND RIGHT UPPER QUADRANT ABDOMEN CLINICAL HISTORY: Right upper quadrant abdominal pain. COMPARISON STUDY: Abdominal CT dated 10/02/2020. TECHNIQUE: Real-time, grayscale, and color flow sonography of the right upper quadrant of the abdomen was performed. Images are reviewed in the transverse and longitudinal planes. FINDINGS: Liver: The liver is mildly enlarged and demonstrates heterogeneous increase echotexture consistent wi th hepatic steatosis. Note that this degrades acoustic penetration of the liver. There is no intrahep atic biliary ductal dilatation. The main portal vein is patent. Gallbladder: The gallbladder is normal in appearance. No gallstones are identified. There is no gallb ladder wall thickening or pericholecystic fluid. A sonographic Warren's sign is reportedly absent. Th e common bile duct measures up to 0.5 cm in diameter. Pancreas: Not visualized due to overlying bowel gas. Right kidney: Survey images of the right kidney demonstrate normal size and echotexture. There is no hydronephrosis. Ascites: None. IMPRESSION: 1. No acute sonographic abnormality is identified in the right upper quadrant. No gallstones are seen . 2. Hepatomegaly and hepatic steatosis. ACT 112: Negative or not required by law. Electronically signed by: Kayden Galvan M.D. 10/02/2020 6:32 PM
[2020-10-02] MEDS: NICOTINE 21 MG/24 HR TDSY TD SCH (19:13)
[2020-10-02] MEDS: oxyCODONE HCL IR 5 MG TAB (IMMEDIATE RELEASE) PO PRN (20:09)
[2020-10-02] MEDS: busPIRone 5 MG TAB PO SCH (20:10)
[2020-10-02] MEDS: traZODone HCL 100 MG TAB PO SCH (22:57)
[2020-10-02] MEDS: GABAPENTIN 600 MG TAB PO SCH (23:00)
[2020-10-03] MEDS: oxyCODONE HCL IR 5 MG TAB (IMMEDIATE RELEASE) PO PRN ×4 (00:16→21:40)
[2020-10-03] MEDS: LACTATED RINGER'S 1,000 ML IV SCH ×2 (06:04→19:26)
[2020-10-03] MEDS: GABAPENTIN 600 MG TAB PO SCH ×3 (06:05→21:42)
[2020-10-03 07:04] LABS: Hematocrit (blood only) 42.6 % (37-47); Hemoglobin 14.4 g/dL (12.0-16.0); Mean Corpuscular Hemoglobin 35.1 pg (25-34); Mean Corpuscular Hgb Conc 33.8 g/dL (32-36); Mean Corpuscular Volume 103.9 fL (80-100); Mean Platelet Volume 11.9 fL (7.4-10.4); Platelet Count 157 K/uL (130-400); RDW Coefficient of Variation 13.7 % (11.5-14.5); RDW Standard Deviation 51.7 fL (36.4-46.3); White Blood Count 7.26 K/uL (4.8-10.8)
[2020-10-03 07:19] LABS: Prothrombin Time 10.2 Seconds (9.0-12.0)
[2020-10-03 07:41] LABS: Albumin Globulin Ratio 0.9 (0.9-2); BUN Creatinine Ratio 18.1 (10-20); Bilirubin,Total 0.7 mg/dl (0.2-1); Calcium 8.4 mg/dl (8.5-10.1); Creatinine Clr Calc Pharmacy 111.6 ml/min; Est GFR (African American) 128.7; Globulin 3.5 gm/dl (2.5-4.0); Magnesium 1.9 mg/dl (1.8-2.4); Potassium 3.8 mmol/L (3.5-5.1); Total Protein 6.5 gm/dl (6.4-8.2)
[2020-10-03] MEDS: busPIRone 5 MG TAB PO SCH ×2 (09:49→21:40)
[2020-10-03] MEDS: lisinopril 40 MG TAB PO SCH (09:49)
[2020-10-03] MEDS: VENLAFAXINE HCL 50 MG TAB PO SCH (09:49)
[2020-10-03] MEDS: THIAMINE HCL 100 MG TAB PO SCH (09:49)
[2020-10-03] MEDS: METOPROLOL SUCC 50MG EXT REL TAB PO SCH (09:49)
[2020-10-03] MEDS: NICOTINE 21 MG/24 HR TDSY TD SCH (09:50)
[2020-10-03] MEDS: LIDOCAINE 5% 1 PATCH TD SCH (09:50)
[2020-10-03] MEDS: FOLIC ACID 1 MG TAB PO SCH ×2 (10:30→11:06)
--- NOTE | 2020-10-03 15:52 | Hospitalist Progress Note ---
Date of Service October 03, 2020 Assessment & Plan (1) Rib pain on right side: CT chest showed subacute to chronic right rib fractures from the 4th - 6th ribs and healing fractures involving the anterior right second, fourth and fifth ribs. - Will tier pain control with NSAIDs, topical, and oral opioid medications for severe pain. - Some improvement today. (2) Alcoholic hepatitis: Drinks about 12-20 shots of rum per day per patient. AST/ALT are 245/145 on admission. Tbili is 1.2. Alk phos 120. Maddrey DF is -6.6, so good prognosis. - RUQ u/s on 10/02 showed hepatic steatosis, but no indication of cirrhosis at this time. - Monitor -> LFTs improving. (3) Alcohol abuse: Drinks about 12-20 shots of rum per day per patient. Reports some mild withdrawal symptoms (tremor, anxiety), but no seizures or DTs. I encourage full alcohol cessation. - Gabapentin withdrawal taper - ONDINA protocol - Ativan PRN for agitation or anxiety - No indication of withdrawal. Offered rehab or AA resources which the patient d eclined. (4) Hypertension: BP was 125/90. - Continue home lisinopril & metoprolol (5) Depression: Reports history of PTSD, anxiety, depression. - Continue home buspirone, trazodone, and venlafaxine (6) DVT prophylaxis: SCDs - Low DVT risk per admission calculator Admission and Anticipated Discharge Date Admission Date: October 02, 2020 Subjective Reports continued pain in the rib area. Reports no fevers/chills, chest pain, shortness of breath, abdominal pain, nausea, or vomiting. Physical Exam Constitutional: WD/WN, vitals as above Eyes: EOM intact bilaterally; no conjunctival abnormality ENMT: external ear and nose normal, oropharynx normal Neck: trachea midline, no thyromegaly normal visual inspection Respiratory: normal respiratory effort, lungs clear to auscultation no respiratory distress Cardiovascular: RRR, no murmur, no edema Gastrointestinal (Abdomen): Inspection/Auscultation: abdomen normal to inspection; abdomen not distended Musculoskeletal: no cyanosis or clubbing, extremities motor strength 5/5 Skin: no rashes, warm and dry Neurologic: moves all extremities and awake Psychiatric: Orientation: alert, oriented to person and cooperative Results & Data Results & Data ([facility]) Vital Signs (Past 12 Hours) Vital Signs Temp Pulse Resp BP Pulse Ox 10/03/20 15:43 37.5 C 85 16 123/75 93 10/03/20 07:30 37.4 C 90 16 128/84 94 10/03/20 06:11 37.2 C 95 H 20 133/87 92 10/03/20 04:09 37.0 C 80 20 131/84 91 PG Care Time/CCT Total # of Minutes Spent Total Time Spent with Patient: Total time spent is greater than 50% in coordination of care (as documented) at patient's floor/unit and/or counseling patient: Coding Level of Care Code 35310 Subseq Hosp Care Lvl 2 Diagnoses Rib pain on right side R07.81 Alcoholic hepatitis K70.10 Alcohol abuse F10.10 Hypertension I10 Depression F32.9 DVT prophylaxis Z29.9
[2020-10-03] MEDS: traZODone HCL 100 MG TAB PO SCH (21:42)
[2020-10-04] MEDS: oxyCODONE HCL IR 5 MG TAB (IMMEDIATE RELEASE) PO PRN (03:54)
[2020-10-04] MEDS: GABAPENTIN 600 MG TAB PO SCH (05:32)
[2020-10-04] MEDS: LACTATED RINGER'S 1,000 ML IV SCH (06:07)
[2020-10-04 06:29] LABS: Hematocrit (blood only) 40.7 % (37-47); Hemoglobin 13.6 g/dL (12.0-16.0); Mean Corpuscular Hemoglobin 35.2 pg (25-34); Mean Corpuscular Hgb Conc 33.4 g/dL (32-36); Mean Corpuscular Volume 105.4 fL (80-100); Mean Platelet Volume 12.4 fL (7.4-10.4); Platelet Count 152 K/uL (130-400); RDW Coefficient of Variation 13.5 % (11.5-14.5); RDW Standard Deviation 52.3 fL (36.4-46.3); Red Blood Count 3.86 M/uL (4.2-5.4); White Blood Count 8.86 K/uL (4.8-10.8)
[2020-10-04 07:03] LABS: Albumin Level 2.8 gm/dl (3.4-5.0); BUN Creatinine Ratio 16.4 (10-20); Calcium 8.2 mg/dl (8.5-10.1); Creatinine Clr Calc Pharmacy 120.2 ml/min; Est GFR (African American) 131.9; Est GFR (Non-African American) 113.8; Magnesium 1.8 mg/dl (1.8-2.4)
[2020-10-04 07:05] LABS: Albumin Globulin Ratio 0.8 (0.9-2); Bilirubin,Total 0.4 mg/dl (0.2-1); Globulin 3.5 gm/dl (2.5-4.0); Phosphorus 2.4 mg/dl (2.5-4.9); Total Protein 6.3 gm/dl (6.4-8.2)
[2020-10-04] MEDS ORDERED: MELOXICAM 7.5 MG TAB PO STA (07:31)
[2020-10-04] MEDS: NICOTINE 21 MG/24 HR TDSY TD SCH (08:25)
[2020-10-04] MEDS: LIDOCAINE 5% 1 PATCH TD SCH (08:26)
[2020-10-04] MEDS: METOPROLOL SUCC 50MG EXT REL TAB PO SCH (09:34)
[2020-10-04] MEDS: FOLIC ACID 1 MG TAB PO SCH (09:34)
[2020-10-04] MEDS: lisinopril 40 MG TAB PO SCH (09:34)
[2020-10-04] MEDS: VENLAFAXINE HCL 50 MG TAB PO SCH (09:34)
[2020-10-04] MEDS: busPIRone 5 MG TAB PO SCH (09:34)
[2020-10-04] MEDS: THIAMINE HCL 100 MG TAB PO SCH (09:34)
--- NOTE | 2020-10-04 16:15 | Discharge Summary ---
Date of Service October 04, 2020 Admission HPI Per Admitting Provider 49yo F w/ hx of HTN, alcohol abuse, anxiety who presents with right rib pain after a fall at home. Per her and her sister, she was drinking heavily yesterday and doing cartwheels. She fell onto her right side. No immediate pain, but she took her trazodone and went to bed. She woke up with significant pain in the right rib area. She presented to the ED due to this pain. Principal Diagnosis Rib pain Alcoholic hepatitis Discharge Exam Constitutional WD/WN, vitals as above Eyes EOM intact bilaterally; no conjunctival abnormality ENMT external ear and nose normal, oropharynx normal Neck trachea midline, no thyromegaly normal visual inspection Respiratory normal respiratory effort, lungs clear to auscultation no respiratory distress Cardiovascular RRR, no murmur, no edema Gastrointestinal (Abdomen) Inspection/Auscultation: abdomen normal to inspection; abdomen not distended Musculoskeletal no cyanosis or clubbing, extremities motor strength 5/5 Skin no rashes, warm and dry Neurologic moves all extremities and awake Psychiatric Orientation: alert, oriented to person and cooperative Discharge Data Allergies Allergy/AdvReac Type Severity Reaction Status Date / Time celecoxib [From Celebrex] Allergy Severe BLURRED Unverified 10/02/20 14:32 VISION, DIZZINESS Sulfa (Sulfonamide Allergy Severe RASH, SKIN Unverified 10/02/20 14:32 Antibiotics) ITCHING Consultations 10/02/20 13:41 ED Decision to Admit Stat Ordered Studies 10/02/20 11:08 CT cervical spine wo con Stat CT head/brain wo con Stat 10/02/20 12:16 CT abd pelvis IV con only Stat CT chest diagnostic w con Stat 10/02/20 16:51 US abdomen limited Routine Hospital Course (1) Rib pain on right side: CT chest showed subacute to chronic right rib fractures from the 4th - 6th ribs and healing fractures involving the anterior right second, fourth and fifth ribs. - Will tier pain control with NSAIDs, topical, and oral opioid medications for severe pain. - Some improvement today. - Discharged with oral and topical pain control. (2) Alcoholic hepatitis: Drinks about 12-20 shots of rum per day per patient. AST/ALT are 245/145 on admission. Tbili is 1.2. Alk phos 120. Maddrey DF is -6.6, so good prognosis. - RUQ u/s on 10/02 showed hepatic steatosis, but no indication of cirrhosis at this time. - Monitor -> LFTs improving. - Encouraged alcohol cessation on discharge. (3) Alcohol abuse: Drinks about 12-20 shots of rum per day per patient. Reports some mild withdrawal symptoms (tremor, anxiety), but no seizures or DTs. I encourage full alcohol cessation. - Gabapentin withdrawal taper - ONDINA protocol - Ativan PRN for agitation or anxiety - No indication of withdrawal. Offered rehab or AA resources which the patient declined. (4) Hypertension: BP was 125/90. - Continue home lisinopril & metoprolol (5) Depression: Reports history of PTSD, anxiety, depression. - Continue home buspirone, trazodone, and venlafaxine (6) DVT prophylaxis: SCDs - Low DVT risk per admission calculator Total Time Total Time Spent Total Time Spent (In Minutes): 35 Discharge Plan Discharge Items Patient Disposition: Home - Self-Care Reason For Visit: RIB PAIN, ALCOHOLIC HEPATITIS Discharge Diagnosis: Rib pain, alcohol hepatitis (liver injury) Activity: Resume your previous activity Non-emergency contact: Primary Care Provider Call non-emergency contact if: your symptoms worsen Follow-up/Referrals: PCP,NO [Primary Care Provider] - Diet: Regular Addtl Attending Provider Instructions: You were admitted with rib pain from a fall and some prior broken ribs. Please use the oral pain medication we have sent to your pharmacy. Please take the medication as prescribed, and do not use it in addition to NSAID medications such as Motrin, ibruprofen, Aleve, or naproxen. You can also use smaller doses of Tylenol (such as one Extra Strength (500 mg) every 6 hours). We also sent in 2 different topical pain medications that you can use. Both are also available as [id number] medications, so if insurance is an issue, they are fairly reasonably priced (~$10) for the OTC version that is almost as strong. While you were here, your liver enzymes were slightly high. This is due to your alcohol consumption. Even stopping drinking for a few days, your liver enzymes are getting normal. The ultrasound of your liver showed fatty liver which is also due to the alcohol consumption. If you stop drinking, I firmly believe that the liver issues will resolve, but if you keep drinking, your liver could progress to scarring which it cannot heal from. Please consider looking into resources such as AA or alcohol rehab to help you maintain sobriety. Please follow up with your PCP in [place] for any additional pain and any help with your sleep or alcohol use. Pending Studies at Discharge: No Stand-Alone Forms: My [facility], Smoking Cessation Medications and DC Order Prescriptions: New lidocaine 5 % Adhesive Patch,Medicated 1 patch transdermal QAM Qty: 15 RF: 0 diclofenac sodium 3 % gel 1 applic topical TID PRN (Reason: rib pain) Qty: 100 RF: 0 meloxicam [Mobic] 7.5 mg tablet 7.5 mg PO DAILY PRN (Reason: pain) Qty: 14 RF: 0 nicotine 21 mg/24 hr patch 24 hour 1 patch transdermal DAILY Qty: 7 RF: 0 gabapentin 600 mg tablet 600 mg PO BID Qty: 4 RF: 0 Continued buspirone 5 mg tablet 5 - 15 mg PO BID RF: 0 trazodone 50 mg tablet 50 mg PO DAILY RF: 0 metoprolol succinate 50 mg tablet extended release 24 hr 100 mg PO QAM RF: 0 venlafaxine 100 mg tablet 300 mg PO DAILY RF: 0 lisinopril 40 mg tablet 40 mg PO DAILY RF: 0 Discharge Orders: Discharge Order (Routine); Ordered 10/04/20 Ordered By: Jeramy Lindsay/Other Patient Handouts: Rib Fracture (Broken Rib) Admission Data Admit Date/Time: 10/02/20 15:36 Attending Provider: Jeramy Nicole Admit Provider: Jeramy Nicole Primary Care Provider: PCP,NO Other Providers: Katia Encarnacion Other Interventions: Discharge Summary Assessment (RN) Last Done: 10/04/20 11:00 Coding Level of Care Code 88378 OBS Care - Discharge Diagnoses Rib pain on right side R07.81 Alcoholic hepatitis K70.10 Alcohol abuse F10.10 Hypertension I10 Depression F32.9 DVT prophylaxis Z29.9
[2020-10-04] MEDS ORDERED: GABAPENTIN 600 MG TAB PO SCH (18:00)
[2020-10-06] MEDS ORDERED: GABAPENTIN 600 MG TAB PO SCH (06:00)
== END 2020-10-04 12:05 | disposition home or self-care (01) ==
LOC: 3N 09:25 → ED 09:25 → 3N 16:39